=== PATIENT | female | born 1955 | race African-American/Black ===

== ENCOUNTER 2016-09-11 08:30 | Outpatient (RCR) | payer OTHER | END 2016-09-21 | disposition home or self-care (01) | LOC: PTY 08:30 | DX: M79.652 Pain in left thigh (principal); Z88.0 Allergy status to penicillin ==

== ENCOUNTER 2016-09-24 11:00 | Outpatient (RCR) | payer OTHER | END 2016-10-21 | disposition home or self-care (01) | LOC: PTY 11:00 | DX: M79.652 Pain in left thigh (principal) | CPT/HCPCS: 97110; 97140; G0283 ==